=== PATIENT | female | born 1995 | race Caucasian/White ===

== ENCOUNTER 2016-08-07 13:29 | Emergency (ER) | payer BC ==
[~2016-08-07] VITALS: Ht 158.8 cm; Wt 71.4 kg
[~2016-08-07 13:29] MED LIST: BCPILLS PO
[2016-08-07 13:30] VITALS: TEMP 36.8; Ht 158.8 cm; Wt 71.4 kg
--- NOTE | 2016-08-07 13:38 | EMERGENCY ROOM VISIT NOTE ---
ED Visit Note First contact with patient: 13:35 CHIEF COMPLAINT: Suture removal This patient returns to the ED today for removal of sutures that were placed 12 days ago. There has been no recent swelling, redness, or drainage from the wound. The patient feels like the laceration is healing well. REVIEW OF SYSTEMS: Head: No headache, injury or neck pain. Skin: No rash, new lesions, or masses. General: No fever or chills, fatigue, loss of appetite , or significant recent weight gain or loss. PMH: The patient is healthy; there is no significant medical or surgical history. SOCIAL HISTORY: Patient lives at home. PHYSICAL EXAM: Vital Signs: Reviewed Nurse's notes. There is a sutured wound on the right heel with no signs of infection. There is no erythema, swelling, or tenderness. EMERGENCY DEPARTMENT COURSE: The sutures were removed without any difficulty and there was no separation of the wound edges. 3 steri strips were placed for support due to location and are to stay in place for next 2 days. DIAGNOSIS: Healing laceration and suture removal Problem List [id number]-2010 Current/Historical Medications Scheduled Control Pills ( Control Pills), 1 TAB PO DAILY Allergies Coded Allergies: No Known Allergies (Unverified , 08/07/16) Vital Signs Date Time Temp Pulse Resp B/P Pulse Ox O2 Delivery O2 Flow Rate FiO2 08/07/16 14:21 68 16 99 08/07/16 13:30 36.8 77 17 126/84 98 Room Air Departure Information Impression Primary Impression: Encounter for removal of sutures Dispostion Home / Self-Care Condition GOOD Referrals No Doctor, Assigned (PCP) Patient Instructions My [facility] Additional Instructions You were seen in the emergency department for removal of your 3 stitches. There does not appear to be any infection at this time. To help the last little bit of skin close I have placed Steri-Strips over this. Please keep these on for the next 1-2 days. If you notice any redness, swelling, drainage or worsening of your wound please return to the emergency department immediately.
[2016-08-07 14:21] VITALS: BP 118/78; PULSE 68; O2SAT 99
== END 2016-08-07 14:21 | disposition home or self-care (01) ==
LOC: C.EDB 13:30 → C.EDD 14:21
DX: Z48.02 Encounter for removal of sutures (principal); S91.311D Laceration without foreign body, right foot, subsequent encounter; X58.XXXD Exposure to other specified factors, subsequent encounter; Z79.3 Long term (current) use of hormonal contraceptives

== ENCOUNTER 2017-03-28 22:32 | Emergency (ER) | payer BC ==
[~2017-03-28] VITALS: Ht 160 cm; Wt 72.2 kg
[2017-03-28 22:44] VITALS: TEMP 36.4; Ht 160 cm; Wt 72.2 kg
--- NOTE | 2017-03-28 23:24 | EMERGENCY ROOM VISIT NOTE ---
History Report prepared by Manuela: Lg Liriano Under the Supervision of: Dr. Demarcus Blair M.D. First contact with patient: 23:14 Chief Complaint: SWELLING TO EXTREMITY Stated Complaint: SWOLLEN CALVES History of Present Illness The patient is a 21 year old female who presents to the Emergency Room with complaints of persistent bilateral calf swelling that started prior to arrival this evening. She says that she was diagnosed with compartment syndrome at the age of 14, and proceeded to have a fasciotomy of both her right and left leg. The patient notes that her compartment syndrome was exercise induced, so she stopped exercising, but then started to run again this summer. The patient says that this is the second episode recently where she felt like her legs were "fluid-filled" and did not feel right. She says that they seem to be swollen, and there is pain when walking up steep inclines only. The patient adds that her legs are not painful while sitting on the edge of the bed. She says that she does not take any daily medications except for control. The patient denies any shortness of breath, tingling or purple discoloration of her feet. She also denies any recent travel. Source of History: patient Onset: Prior to arrival this evening Position: leg (bilateral) Quality: other (swelling) Timing: other (persistent) Associated Symptoms: No SOB Note: Associated symptoms: Calf pain only when walking up a steep incline. Denies tingling or purple discoloration of feet. Review of Systems See HPI for pertinent positives & negatives. A total of 10 systems reviewed and were otherwise negative. Past Medical & Surgical Medical Problems: (1) Compartment syndrome Surgical Problems: (1) History of fasciotomy Family History FHx: cancer Hypertension Social History Smoking Status: Never Smoker Alcohol Use: none Marital Status: single Housing Status: lives with family Occupation Status: [employer] student Current/Historical Medications Scheduled Control Pills ( Control Pills), 1 TAB PO DAILY Allergies Coded Allergies: No Known Allergies (Unverified , 03/28/17) Physical Exam Vital Signs Date Time Temp Pulse Resp B/P (MAP) Pulse Ox O2 Delivery O2 Flow Rate FiO2 03/29/17 01:04 61 18 113/59 100 Room Air 03/28/17 22:44 36.4 74 16 151/88 100 Room Air Physical Exam GENERAL: Patient is mildly anxious appearing and in no acute distress. HEENT: No acute trauma, normocephalic atraumatic, mucous membranes moist, no nasal congestion, no scleral icterus. NECK: No stridor, no adenopathy, no meningismus, trachea is midline. LUNGS: No dyspnea. Clear to auscultation and equal bilaterally. No wheeze, no rhonchi. HEART: Regular rate and rhythm. No murmurs, rubs, gallops appreciated. ABDOMEN: Soft, nontender, bowel sounds positive, no masses appreciated, no peritonitis. BACK: No midline tenderness, no CVA tenderness EXTREMITIES: Old scarring of bilateral lower legs. Soft compartments, no tenderness. 1/2 cm increased size of right calf compared to left calf. Strong bilateral pulses, normal color, no neurologic deficits. No swelling of ankles or feet. NEUROLOGIC: Alert and oriented, no acute motor or sensory deficits, no focal weakness, cranial nerves grossly intact. SKIN: No rash, no jaundice, no diaphoresis. Medical Decision & Procedures ER Provider Diagnostic Interpretation: US results are stated below per my interpretation and the radiologist's interpretation. US VENOUS BILATERAL LOWER EXTREMITIES: No evidence of DVT in the bilateral lower extremities. Radiologist: Melody Oliveros MD Laboratory Results 03/28/17 23:40 Red Blood Count 4.74, Mean Corpuscular Volume 89.7, Mean Corpuscular Hemoglobin 31.2, Mean Corpuscular Hemoglobin Concent 34.8, Mean Platelet Volume 11.3, Neutrophils (%) (Auto) 60.8, Lymphocytes (%) (Auto) 29.7, Monocytes (%) (Auto) 8.0, Eosinophils (%) (Auto) 1.1, Basophils (%) (Auto) 0.3, Neutrophils # (Auto) 4.84, Lymphocytes # (Auto) 2.37, Monocytes # (Auto) 0.64, Eosinophils # (Auto) 0.09, Basophils # (Auto) 0.02 03/28/17 23:40 Test 03/28/17 23:40 White Blood Count 7.97 K/uL (4.8-10.8) Red Blood Count 4.74 M/uL (4.2-5.4) Hemoglobin 14.8 g/dL (12.0-16.0) Hematocrit 42.5 % (37-47) Mean Corpuscular Volume 89.7 fL (80-100) Mean Corpuscular Hemoglobin 31.2 pg (25-34) Mean Corpuscular Hemoglobin Concent 34.8 g/dl (32-36) Platelet Count 210 K/uL (130-400) Mean Platelet Volume 11.3 fL (7.4-10.4) Neutrophils (%) (Auto) 60.8 % Lymphocytes (%) (Auto) 29.7 % Monocytes (%) (Auto) 8.0 % Eosinophils (%) (Auto) 1.1 % Basophils (%) (Auto) 0.3 % Neutrophils # (Auto) 4.84 K/uL (1.4-6.5) Lymphocytes # (Auto) 2.37 K/uL (1.2-3.4) Monocytes # (Auto) 0.64 K/uL (0.11-0.59) Eosinophils # (Auto) 0.09 K/uL (0-0.5) Basophils # (Auto) 0.02 K/uL (0-0.2) RDW Standard Deviation 41.5 fL (36.4-46.3) RDW Coefficient of Variation 12.8 % (11.5-14.5) Immature Granulocyte % (Auto) 0.1 % Immature Granulocyte # (Auto) 0.01 K/uL (0.00-0.02) Anion Gap 10.0 mmol/L (3-11) Est Creatinine Clear Calc Drug Dose 106.8 ml/min Estimated GFR () 123.0 Estimated GFR (Non- 106.1 BUN/Creatinine Ratio 14.2 (10-20) Calcium Level 8.5 mg/dl (8.5-10.1) Total Creatine Kinase 110 U/L (26-192) Laboratory results as reviewed by me. ED Course 2315: The patient was evaluated in room A12B. A complete history and physical exam was performed. 0120: I reevaluated the patient and she is feeling good. The patient verbally expressed understanding and agreement of the treatment plan. The patient will be discharged. Medical Decision Differential: DVT, Compartment Syndrome, Rhabdo, Arterial Occlusion, Idiopathic , Trauma, amongst other pathologies entertained. 21 yr old female with complex compartment issues in lower legs 6 yrs ago with multiple fasciotomies arrives due to calf cramping and possible swelling bilaterally. Her exam is benign other then right calf slightly larger than left. She has old fasciotomy scars well healed. There is no evidence of compartment syndrome on exam with soft compartment throughout, no distal symptoms/findings and no pain with squeeze nor ROM ankle. She is in no distress and looks well. Labs unremarkable with no ck elevation nor other electrolyte abnormalities. US done given symptoms with BC use which is unremarkable. She is stable and looks well. Discussed plan with patient and mother. Follow up with Ortho if continued discomfort, RTED if worsening or other concerns. Medication Reconcilliation Current Medication List: was personally reviewed by me Blood Pressure Screening Patient's blood pressure: Elevated blood pressure Blood pressure disposition: Elevated BP felt to be situational Impression Primary Impression: Bilateral calf pain Scribe Attestation The scribe's documentation has been prepared under my direction and personally reviewed by me in its entirety. I confirm that the note above accurately reflects all work, treatment, procedures, and medical decision making performed by me. Departure Information Dispostion Home / Self-Care Referrals No Doctor, Assigned (PCP) Patient Instructions My [facility] Additional Instructions Avoid heavy exertion and lifting with your legs. Rest and keep well hydrated. Keep legs elevated when possible. Return immediately if significant pain, increased swelling, rash, discoloration , weakness or other concerns. You should follow up with Orthopedics if symptoms continue for further evaluation.
[2017-03-28 23:55] LABS: BASO % 0.3 %; BASO ABS # 0.02 K/uL (0-0.2); COMPLETE YES; EOS % 1.1 %; HEMATOCRIT 42.5 % (37-47); IG% 0.1 %; LYMPH % 29.7 %; LYMPH ABS # 2.37 K/uL (1.2-3.4); MEAN CELL VOLUME 89.7 fL (80-100); MEAN CORPUSCULAR HEMOGLOBIN 31.2 pg (25-34); MEAN CORPUSCULAR HGB CONC 34.8 g/dl (32-36); MEAN PLATELET VOLUME 11.3 fL (7.4-10.4); NEUT % 60.8 %; PLATELET COUNT 210 K/uL (130-400); RED BLOOD COUNT 4.74 M/uL (4.2-5.4); WHITE BLOOD COUNT 7.97 K/uL (4.8-10.8)
[2017-03-29 00:26] LABS: BUN/CREATININE RATIO 14.2 (10-20); CALCIUM 8.5 mg/dl (8.5-10.1); CREATININE 0.8 mg/dl (0.60-1.20); POTASSIUM 3.8 mmol/L (3.5-5.1)
[2017-03-29 01:04] VITALS: BP 113/59; PULSE 61; O2SAT 100
--- NOTE | 2017-03-29 06:23 | DIAGNOSTIC IMAGING REPORT ---
VENOUS DOPPLER LW EXT BILAT HISTORY: Pain. Edema. bilateral lower calf swelling/pain. On control COMPARISON STUDY: None. FINDINGS: There is normal compressibility, flow, and augmentation within the bilateral lower extremity deep venous systems. IMPRESSION: No DVT within the right or left lower extremity. The above report was generated using voice recognition software. It may contain grammatical, syntax or spelling errors. Electronically signed by: Sonu Jamiosn M.D. 03/29/2017 6:22 AM Dictated Date/Time: 03/29/2017 6:22 AM
== END 2017-03-29 01:30 | disposition home or self-care (01) ==
LOC: C.EDB 22:33 → C.EDA 03-29 01:30
DX: M79.661 Pain in right lower leg (principal); M79.662 Pain in left lower leg; R60.0 Localized edema; M79.A29 Nontraumatic compartment syndrome of unspecified lower extremity; Z79.3 Long term (current) use of hormonal contraceptives; Z82.49 Family history of ischemic heart disease and other diseases of the circulatory system